=== PATIENT | male | born 1975 | race African-American/Black ===

== ENCOUNTER 2017-04-26 14:46 | Observation (INO) | payer BC ==
[~2017-04-26] VITALS: Ht 188 cm; Wt 143.1 kg
--- NOTE | ~2017-04-26 | EKG ---
PATIENT: MARY JANE SHELL UNIT #: [id number] Ventricular Rate: 72 BPM Atrial Rate: 72 BPM P-R Interval: 154 ms QRS Duration: 74 ms Q-T Interval: 404 ms QTC Calculation(Bezet): 442 ms P [place]: 50 degrees Calculated R [place]: 6 degrees Calculated T [place]: 25 degrees Diagnosis Line: Normal sinus rhythm Diagnosis Line: Normal ECG Diagnosis Line: When compared with ECG of 17-SEP-2014 11:40, Diagnosis Line: No significant change was found Diagnosis Line: Confirmed by PAUL ASHLEY MD ([id number]) on Diagnosis Line: 04/26/2017 5:12:08 PM INTERPRETING MD: DION ALVAREZ
--- NOTE | ~2017-04-26 | EKG ---
PATIENT: MARY JANE SHELL UNIT #: [id number] Ventricular Rate: 48 BPM Atrial Rate: 48 BPM P-R Interval: 142 ms QRS Duration: 84 ms Q-T Interval: 460 ms QTC Calculation(Bezet): 410 ms P [place]: 24 degrees Calculated R [place]: 16 degrees Calculated T [place]: -6 degrees Diagnosis Line: Marked sinus bradycardia Diagnosis Line: Abnormal ECG Diagnosis Line: When compared with ECG of 26-APR-2017 15:02, Diagnosis Line: Vent. rate has decreased BY 24 BPM Diagnosis Line: Inverted T waves have replaced nonspecific T wave Diagnosis Line: abnormality in Inferior leads Diagnosis Line: Confirmed by FAROOQ SIEGEL MD ([id number]) on Diagnosis Line: 04/27/2017 11:58:39 AM INTERPRETING MD: ROBBIN ALVAREZ
--- NOTE | ~2017-04-26 | CR72 ---
[facility] A Service of [facility] & [facility] RADIOLOGY TEXT RESULTS PATIENT: MARY JANE SHELL LOCATION: [facility] 561-01 : 75 UNIT #: [id number] AGE: [address]: Mahad Patel MD SEX: M ORDER DR: [id number] [facility] [address] [place], [place] [address] [id number] MR#: [id number] Acc #: [id number] NAME: MARY JANE SHELL : 1975 SEX: M STUDY DATE/TIME: 04/26/2017 16:17 UNIT: [facility] ROOM: [facility] STUDY DESCRIPTION: CR Chest Single View Portable Attending Physician: Mahad Patel M.D. Referring Physician: Primary Care Physician No Ordering Physician: Ed Shukri Garcia M.D. Primary Care Physician: Primary Care Physician No MEDICAL IMAGING REPORT This report is preliminary unless electronic signature is present EXAM Portable chest, 04/26/2017 HISTORY Chest pain, headache began 04/25/2017. Smoker for 10 years. FINDINGS AP radiograph of the chest is presented. Comparison 09/17/2014. Heart pdwhno-or-ikriv limits of normal in size. Lungs are well inflated. No acute pulmonary disease, pleural effusion or pneumothorax. No suspicious nodule. Bony structures unremarkable. Dictated by... Eddie Bhakta M.D. THIS IS AN ELECTRONICALLY VERIFIED REPORT Eddie Bhakta M.D. at 04/27/2017 6:04 PM NORRIS/arminda TD: 04/27/2017 03:28 JOB #: [id number] MEDICAL IMAGING REPORT Page 1 of 1 COPY
--- NOTE | ~2017-04-26 | CO ---
Unit #: [id number] #: [id number] Patient: MARY JANE SHELL [id number] [address] [place], [place] [address] [id number] MR#: [id number] NAME: MARY JANE SHELL ROOM: 561 Age: 41 Sex: M Admission Date: 04/26/2017 : 1975 Attending Physician: Mahad Patel M.D. Primary Care Physician: Primary Care Physician No CONSULTATION REPORT HISTORY OF PRESENT ILLNESS This is a 41-year-old male, who presented to the ER with intermittent left chest pain described as pressure in his upper left chest, radiated about 5/10. The pain started on Tuesday night around 7 p.m. and lasted approximately 25 minutes. It reoccurred sporadically off and on until the next day. While he worked the next day, it reoccurred and he in addition had a headache, so he went to the ER. He denies shortness of breath, nausea, diaphoresis, or dizziness with the pain. Denies any radiation. The pain is currently gone. He denies prior medical history. Denies hypertension, diabetes, or hyperlipidemia. He denies tobacco abuse. PAST MEDICAL HISTORY None. PAST SURGICAL HISTORY Left knee surgery. 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 He denies tobacco abuse. States he smokes marijuana daily. Drinks 2 to 3 beers per week. ALLERGIES No known drug allergies. HOME MEDICATIONS No home medications. REVIEW OF SYSTEMS A 10-point review of systems was conducted and was otherwise negative except for what was stated in the HPI. PHYSICAL EXAMINATION VITAL SIGNS: Temperature 97.7, heart rate 58, respiratory rate 16, and blood pressure 146/94. BMI 40. GENERAL: This is a pleasant 41-year-old male, in no acute distress. HEENT: Head is atraumatic and normocephalic. Pupils are equal and reactive. Mucous membranes are moist. NECK: Supple. Trachea is midline. Negative for JVD. LUNGS: Clear to auscultation. Nonlabored respirations. CARDIOVASCULAR: S1 and S2. Regular rate and rhythm. Negative for murmurs, rubs, or gallops. Unit #: [id number] #: [id number] Patient: MARY JANE SHELL ABDOMEN: Soft, nontender, and nondistended. EXTREMITIES: Pulses are palpable. No pedal edema. No cyanosis. NEUROLOGIC: Alert and oriented x3. Follows all commands equally and moves all extremities. DIAGNOSTIC STUDIES LABORATORY RESULTS: Sodium 136, potassium 3.6, chloride 105, BUN 12, creatinine 1.1, and glucose 100. Hemoglobin 14, hematocrit 41.6, white blood cell count 5, and platelets 162. Point of care troponin less than 0.05 and repeat troponin 0.04. IMAGING STUDIES: Chest x-ray showed no acute disease. CARDIOVASCULAR STUDY: EKG showed sinus bradycardia with a ventricular rate of 48 and nonspecific T-wave abnormalities. The EKG was unchanged from prior EKG. ASSESSMENT 1. Chest pain. 2. BMI 40. 3. Hypertension. PLAN Check fasting lipid profile, TSH, hemoglobin A1c. EKG. Troponins were negative for ischemia. He underwent exercise Cardiolite stress test without any complications. The dictated results are currently not available, but per Dr. Patel, Cardiolite imaging was negative for ischemia. An echocardiogram was done which showed left ventricular hypertrophy. He is currently chest pain free and stable for discharge home. He will be sent home on blood pressure medications. He is to follow up with Dr. Patel to discuss his echocardiogram and monitor his blood pressure in 1 month. He does report occurrences of snoring due to body habitus. We have asked Pulmonary to see him for obstructive sleep apnea evaluation. The workup can be done as an outpatient. DISCHARGE DISPOSITION Home. DISCHARGE CONDITION Stable, good. DISCHARGE INSTRUCTIONS 1. Zestoretic 10/12.5 mg p.o. once a day. 2. Follow up with Dr. Patel in 1 month. 3. Follow up with Dr. Alberts as instructed. 4. Instructed on DASH diet and exercise. Dictated by... NIGHAT Bella/alicia TD: 04/28/2017 08:36 JOB #: [id number] CC: Mahad Patel M.D. Unit #: [id number] #: [id number] Patient: MARY JANE SHELL CONSULTATION REPORT Page 1 of 1 X X CONSULTATION REPORT
--- NOTE | ~2017-04-26 | TH ---
Unit #: [id number] #: [id number] Patient: MARY JANE SHELL [id number] [address] [place], [place] [address] [id number] I MR#: [id number] NAME: MARY JANE SHELL : 1975 SEX: M STUDY DATE/TIME: UNIT: C5B ROOM: [facility] STUDY DESCRIPTION: Nuclear Study Attending Physician: Mahad Patel M.D. Referring Physician: No Primary Care Physician Primary Care Physician: No Primary Care Physician CARDIOLOGY REPORT EXAM Stress Nuclear and ECG Combined INDICATION Chest pain, hypertension, family history of coronary disease. SUMMARY The patient exercised on a Ramana protocol to maximal effort. Patient completed 7 minutes 24 seconds of exercise. Heart rate increased from 58 go 166 (92%) and blood pressure increased from 142/90 to 178/90. The patient stopped at 7 minutes 24 seconds with no chest pain. The resting ECG was abnormal with T waves strongly upright in AVL. With stress, there was [address] depression in leads II and AVF, 0.[address] depression in V5 and V6. These changes resolved within approximately four minutes post exercise, although there was some residual still present. This was a two day study with only the stress portion done. 29.9 mCi of technetium 99 Cardiolite was administered and appropriate views were obtained. FINDINGS This study is adequate. There is no significant patient motion noted with stress imaging. There is no significant lung uptake. There is mild LV enlargement. Summed stress score is 0. Gated perfusion wall motion analysis demonstrates end-diastolic volume 131 mL, ejection fraction 62% with no wall motion abnormalities. Perfusion images demonstrate normal perfusion throughout the myocardium with the exception of chest wall attenuation artifact. IMPRESSION 1. Myocardial perfusion scan shows no ischemia or infarction. 2. Dilated LV. Await echo evaluation. 3. Normal ejection fraction. Patient may be discharged home, on appropriate medications for blood pressure, with changes based on any findings on the echo. Dictated by... Mahad Patel M.D. Unit #: [id number] #: [id number] Patient: MARY JANE SHELL PJR/jada TD: 04/27/2017 12:58 JOB #: [id number] CARDIOLOGY REPORT Page 1 of 1 X Mahad Patel MD CARDIOLOGY REPORT
--- NOTE | ~2017-04-26 | BMI ---
[facility] Nutrition Therapy DATE: 04/27/17 Patient: MARY JANE SHELL Physician: LURDES Address: [address] [place] [address] Room/Bed: [address] [place] [address], Zip: [place] [address] Admit Date: 04/26/17 Date of : [birth year] Height: 6 2 Weight: 315 143.1 HIGH BMI NOTE: DX: 41 y/o male admitted for chest pain ANTHROPOMETRICS: ht: 6'2" wt: 315# (143 kg) BMI 40 DIET: 1. Healthy Heart INTERVENTION: 1. Healthy Heart diet RECOMMENDATIONS: 1. Continue current healthy heart diet in order to promote gradual weight loss towards a healthy BMI. RD will f/u per protocol. Respectfully, ADALBERTO TAVARES, sports management internship Tyesha Gayle RD, LD Food and Nutritional Services [facility] cc: client file
--- NOTE | ~2017-04-26 | ST ---
Unit #: [id number] #: [id number] Patient: MARY JANE SHELL [id number] [address] [address] [id number] I MR#: [id number] NAME: MARY JANE SHELL : 1975 SEX: M STUDY DATE/TIME: UNIT: C5B ROOM: [facility] STUDY DESCRIPTION: Stress ECG Attending Physician: Mahad Patel M.D. Referring Physician: No Primary Care Physician Primary Care Physician: No Primary Care Physician CARDIOLOGY REPORT EXAM Stress ECG FINDINGS Please see nuclear study for results of stress ECG. Dictated by... Ajay Rosen/jada TD: 04/27/2017 13:04 JOB #: [id number] CARDIOLOGY REPORT Page 1 of 1 X Mahad Patel MD CARDIOLOGY REPORT
[~2017-04-26 14:46] MED LIST: NAPROSYN500 MG PO
[2017-04-26 15:53] LABS: BASOPHIL% 0.4 % (0-2.5); EOSINOPHIL# 0.2 X10e3 (0-0.7); LYMPHOCYTE# 1.4 X10e3 (1.0-3.5); LYMPHOCYTE% 24.3 % (17.0-45.0); MEAN CELL VOLUME 87.3 FL (83-96); MEAN CORPUSCULAR HEMOGLOBIN 29.2 PG (28-34); MEAN CORPUSCULAR HGB CONC 33.5 g/dL (30-36); MEAN PLATELET VOLUME 9.2 FL (6.5-11.5); MONOCYTE# 0.4 X10e3 (0-1.0); MONOCYTE% 7.5 % (3.0-12.0); NEUTROPHIL# 3.7 X10e3 (1.5-7.1); NEUTROPHIL% 63.8 % (40-75); PLATELET COUNT 177 X10e3 (140-420); RED BLOOD COUNT 4.81 X10e (3.90-5.60); RED CELL DISTRIBUTION WIDTH 13.1 % (11.0-15.5); WHITE BLOOD COUNT 5.7 X10e3 (4.0-10.5)
[2017-04-26 16:00] LABS: DIFF IND NO
[2017-04-26 16:04] LABS: INR 1.1; PARTIAL THROMBOPLASTIN TIME 26.8 SECONDS (23.5-31.3); PROTHROMBIN TIME (PATIENT) 12.2 SECONDS (10.0-11.7)
[2017-04-26 16:15] LABS: POC - CKMB 2.7 ng/mL (0.0-7.9); POC - TROPONIN <0.05 ng/mL (<=0.05)
[2017-04-26 16:20] LABS: ALBUMIN SERUM 4.1 g/dL (3.5-5.0); BILIRUBIN, DIRECT 0.1 mg/dL (0.0-0.2); BILIRUBIN,INDIRECT 0.8 mg/dL (0.0-0.9); BILIRUBIN,TOTAL 0.9 mg/dL (0.2-2.0); BUN/CREATININE RATIO 8.46; CALCIUM SERUM 8.7 mg/dL (8.4-10.2); CREATININE SERUM 1.3 mg/dL (0.6-1.4); GLOM FILT RATE Estimated 78.6 mL/min (>60); POTASSIUM 3.6 mmol/L (3.5-5.1); PROTEIN TOTAL SERUM 7.1 g/dL (6.0-8.3)
[2017-04-26 19:11] LABS: POC - CKMB 2.5 ng/mL (0.0-7.9); POC - TROPONIN <0.05 ng/mL (<=0.05)
[2017-04-27 05:38] LABS: HEMATOCRIT 41.6 % (38.0-50.0); MEAN CELL VOLUME 86.8 FL (83-96); MEAN CORPUSCULAR HEMOGLOBIN 29.2 PG (28-34); MEAN CORPUSCULAR HGB CONC 33.7 g/dL (30-36); MEAN PLATELET VOLUME 9.2 FL (6.5-11.5); RED BLOOD COUNT 4.8 X10e (3.90-5.60); RED CELL DISTRIBUTION WIDTH 13.2 % (11.0-15.5)
[2017-04-27 06:13] LABS: BUN/CREATININE RATIO 10.9; CALCIUM SERUM 8.4 mg/dL (8.4-10.2); CREATININE SERUM 1.1 mg/dL (0.6-1.4); GLOM FILT RATE Estimated 96.2 mL/min (>60); POTASSIUM 3.6 mmol/L (3.5-5.1)
[2017-04-27 10:00] LABS: CHOLESTEROL 144 mg/dL (0-200); HDL CHOLESTEROL 39 mg/dL (29-75); LDL CHOLESTEROL 84 mg/dL (-130); LDL/HDL RATIO 2 RATIO (0-4); TRIGLYCERIDES 105 mg/dL (10-160)
[2017-04-27] MEDS ORDERED: LIPITOR20 MG PO (15:28)
[2017-04-27] MEDS ORDERED: PROTONIX PO (15:29)
[2017-04-27] MEDS ORDERED: ZESTORETIC 10-1 EAC1 PO (15:30)
== END 2017-04-27 16:07 | disposition home or self-care (01) | DRG 313 ==
LOC: CED 14:46 → CEDOF 18:40 → C5B 19:21 → CEDOF 19:21 → CED 19:21 → C5B 21:23 → CEDOF 21:23 → C5B 04-27 16:07
PROVIDERS: Emergency Medicine; Nurse Practitioner
DX: R07.89 Other chest pain (principal); I10 Essential (primary) hypertension; I07.1 Rheumatic tricuspid insufficiency; I51.7 Cardiomegaly
CPT/HCPCS: 36415; 71010; 78451; 80048; 80061; 80076; 82553; 83036; 84443; 84484; 85025; 85027; 85610; 85730; 93005; 93017; 93306; 99285; A9500; G0378